=== PATIENT | female | born 1980 | race Caucasian/White ===

== ENCOUNTER 2017-09-17 09:21 | Emergency (ER) | payer MEDICAID ==
[~2017-09-17] VITALS: Ht 162.6 cm; Wt 59.3 kg
[~2017-09-17 09:21] MED LIST: BENZ-17 PO; DOCU100C33 PO; GEMF600T3 PO; HYDR10TA11 PO; IBUP200T49 PO; INSU100I11 SQ-INSULIN; INSU100I13 SQ; INSU100I13 SQ-INSULIN; INSU100V8 SQ; INSULINS; LINA5TAB PO; LISI2.5T PO; LOSA25TA5 PO; METH750T2 PO; METR500T PO; NAPR250T6 PO; OXYC1TAB7 PO; RIZA10TA22 PO; SUMA25TA3 PO; TOPI50TA35 PO; ZOLP-413 PO
[2017-09-17 09:24] VITALS: BP 119/75
[2017-09-17 10:22] LABS: CULTURE INDICATED? YES; MICROSCOPIC INDICATED
[2017-09-17 10:23] LABS: HCG UR SG > 1.045 (1.003-1.030)
[2017-09-17 10:23] LABS: BASOPHILS # (AUTO) 0.05 x10^3/uL (0-0.1); BASOPHILS % (AUTO) 1 % (0-1); EOSINOPHILS # (AUTO) 0.15 x10^3/uL (0-0.4); EOSINOPHILS % (AUTO) 3 % (1-7); LYMPHOCYTES % (AUTO) 29 % (22-44); MD NO; MEAN CORPUSCULAR HEMOGLOBIN 30.1 pg (27.0-34.8); MEAN CORPUSCULAR HGB CONC 33.8 g/dL (32.4-35.8); MEAN CORPUSCULAR VOLUME 89.2 fL (80-100); MEAN PLATELET VOLUME 7.9 fL (7.4-10.4); MONOCYTES # (AUTO) 0.43 x10^3/uL (0.2-0.8); MONOCYTES % (AUTO) 8 % (2-9); NEUTROPHILS # (AUTO) 3.28 x10^3/uL (1.8-6.8); NEUTROPHILS % (AUTO) 60 % (42-75); PLATELET COUNT 418 x10^3/uL (130-400); RED BLOOD COUNT 4.66 x10^6/uL (3.82-5.3); RED CELL DISTRIBUTION WIDTH 13.3 % (9.6-15.2)
[2017-09-17 10:35] LABS: ALBUMIN 3.7 g/dL (3.4-5.0); ANION GAP 8 mmol/L (5-15); CALCIUM 8.8 mg/dL (8.5-10.1); CHLORIDE 102 mmol/L (98-107)
[2017-09-17 10:37] LABS: CREATININE 0.87 mg/dL (0.55-1.02)
== END 2017-09-17 11:52 | disposition home or self-care (01) ==
LOC: ED 11:15
DX: N30.00 Acute cystitis without hematuria (principal); E11.65 Type 2 diabetes mellitus with hyperglycemia
CPT/HCPCS: 36415; 80048; 81001; 81025; 82040; 85025; 87077; 87086; 87186; 99284